=== PATIENT | male | born 1940 | race Caucasian/White ===

== ENCOUNTER 2020-10-19 08:58 | Emergency (ER) | payer MEDICARE, OTHER ==
[~2020-10-19] VITALS: Ht 172.7 cm; Wt 88.5 kg
[~2020-10-19 08:58] MED LIST: NEURONTIN100 MG PO; VITAMIN C100 MG PO; VITAMIN D400 UNI1 PO
[2020-10-19] MEDS ORDERED: NORVASC5 MG PO (09:20)
[2020-10-19] MEDS ORDERED: ATORVASTATIN CA20 MG PO (09:21)
[2020-10-19] MEDS ORDERED: CIPRO500 MG PO (13:08)
[2020-10-19] MEDS ORDERED: ONDANSETRON ODT8 MG PO (13:08)
[2020-10-19] MEDS ORDERED: FLAGYL500 MG PO (13:08)
== END 2020-10-19 15:22 | disposition home or self-care (01) ==
LOC: ED 08:58
DX: K57.92 Diverticulitis of intestine, part unspecified, without perforation or abscess without bleeding (principal); Z88.0 Allergy status to penicillin; Z88.1 Allergy status to other antibiotic agents; Z79.899 Other long term (current) drug therapy
CPT/HCPCS: 71046; 74177; 80053; 81001; 85025; 96368; 99285-25; J0744; J7030; Q9967

== ENCOUNTER 2021-05-09 11:58 | Day surgery (SDC) | payer MEDICARE, OTHER ==
[~2021-05-09] VITALS: Ht 172.7 cm; Wt 86.0 kg
[~2021-05-09 11:58] MED LIST changes: +ATORVASTATIN CA20 MG PO; +CIPRO500 MG PO; +FLAGYL500 MG PO; +NORVASC5 MG PO; +ONDANSETRON ODT8 MG PO
--- NOTE | 2021-05-09 13:51 | NUR ---
WARM BLANKET ON PER REQUEST UPDATE GIVEN. IV PATENT.
--- NOTE | 2021-05-09 15:17 | NUR ---
05/09/21 1517 Glenna Porter 1513- PT ARRIVES TO PACU AWAKE AND TALKING. PT REPORTS NO PAIN OR NAUSEA. RESP EVEN AND UNLABORED. OXYGEN SAT HIGH 90'S ON 2L VIA NC. 1516- PT PROVIDED A WARM BLANKET PER REQUEST.
--- NOTE | 2021-05-11 15:08 | OR ---
[facility] [address], [place] [address] Signed DATE OF OPERATION: 05/09/2021 SURGEON: Jose Angel Daniel MD PREOPERATIVE DIAGNOSES: 1. History of diverticulitis, October 19, 2020. 2. Normal colonoscopy February 21, 2013. POSTOPERATIVE DIAGNOSES: 1. Sigmoid diverticulosis without evidence of stricture or inflammation. 2. Polyps x3 (larger pedunculated polyp of rectum, smaller pedunculated polyp, right transverse colon). PROCEDURE: Total colonoscopy to cecum with cold snare polypectomy x1, cold morcellation polypectomy x1 and hot snare polypectomy x1. ANESTHESIA: Intravenous sedation, fentanyl 100 mcg and Versed 6 mg total. INDICATION: This 80-year-old white man is a patient of Dr. Garcia. He suffered a bout of diverticulitis on October 19, 2020, treated with antibiotics and dietary modification with resolution of his symptoms. It has been since 2012 that he last underwent a colonoscopy. He had diverticulosis at that time. He had a previous colonoscopy in the past, which showed a polyp as performed by Dr. Vitor Bryant a number of years ago. The patient does have family history of colon cancer in his father, although he is symptom-free at this time. He is recommended to have colonoscopy on the basis of his family history as well as his recent diverticulitis problem. The risks of bleeding, infection, and perforation were reviewed with him, he understands and wished to proceed. FINDINGS: The prep was excellent. Complete colonoscopy was undertaken to the cecum without question. He had diverticular change of the sigmoid and left colon as expected. Additionally he had 3 polyps, a sessile polyp in the right colon, excised with cold morcellation technique. Another in the transverse colon excised with cold snare polypectomy technique and a larger pedunculated polyp of the rectum at about 10 cm, this was excised with hot snare polypectomy technique. There were no other findings of concern. Electronically Signed By: JOSE ANGEL DANIEL MD 05/11/21 1508 PATIENT NAME: JOSE ANGEL OLSEN OPERATIVE REPORT DATE OF : 44 REPORT #: [id number] PHYSICIAN: JOSE ANGEL DANIEL MD PCP: JERMAIN GARCIA MD REPORT IS CONFIDENTIAL AND NOT TO BE RELEASED WITHOUT AUTHORIZATION [facility] [address] [place] [id number] Signed DESCRIPTION OF PROCEDURE: The patient was brought to the endoscopy suite and placed in lateral decubitus position given intravenous sedation to the point of slurred speech and nystagmus. Digital rectal examination was normal. An Olympus video colonoscope was passed in the rectum and manipulated throughout the colon ultimately intubating the cecum itself. The ileocecal valve and appendiceal orifice were normal. Scope was withdrawn from that point and in the proximal ascending colon there was a small sessile polyp, this was excised with cold morcellation technique. The scope was further withdrawn and in the right transverse colon, a small pedunculated polyp was noted, this was excised with cold snare technique. Further withdrawal showed diverticula once again in the left colon and in the sigmoid. At the region of the rectum at 10 cm, there was a much larger pedunculated adenomatous polyp. This was excised with hot snare polypectomy technique without problem and passed for pathology. There were no other findings of concern. The patient was taken to the recovery room in good condition. CONCLUDING DIAGNOSES: 1. Polyps x3. 2. Diverticular change of sigmoid. PLAN: Recommend repeat colonoscopy in three years, sooner if clinically indicated. He will return to the ongoing care of Dr. Garcia. Jose Angel Daniel MD /MODL /[id number] cc: Jermain Garcia MD Copies: JERMAIN GARCIA MD Electronically Signed By: JOSE ANGEL DANIEL MD 05/11/21 1508 PATIENT NAME: JOSE ANGEL OLSEN OPERATIVE REPORT DATE OF : 44 REPORT #: [id number] PHYSICIAN: JOSE ANGEL DANIEL MD PCP: JERMAIN GARCIA MD REPORT IS CONFIDENTIAL AND NOT TO BE RELEASED WITHOUT AUTHORIZATION [facility] [address] [place] [id number] Signed ~ Electronically Signed By: JOSE ANGEL DANIEL MD 05/11/21 1508 PATIENT NAME: FRANJOSE ANGEL LLAMAS OPERATIVE REPORT DATE OF : 44 REPORT #: [id number] PHYSICIAN: JOSE ANGEL DANIEL MD PCP: JERMAIN GARCIA MD REPORT IS CONFIDENTIAL AND NOT TO BE RELEASED WITHOUT AUTHORIZATION
== END 2021-05-09 15:52 | disposition home or self-care (01) ==
LOC: OPS 11:58 → DS 11:58 → OPS 13:00
PROVIDERS: ATTEND Surgery
PROC: 0DBE8ZX Excision of Large Intestine, Via Natural or Artificial Opening Endoscopic, Diagnostic (ICD-10-PCS; 2021-05-09)
PROC: 0DBL8ZX Excision of Transverse Colon, Via Natural or Artificial Opening Endoscopic, Diagnostic (ICD-10-PCS; 2021-05-09)
PROC: 0DBP8ZX Excision of Rectum, Via Natural or Artificial Opening Endoscopic, Diagnostic (ICD-10-PCS; 2021-05-09)
PROC: 0DBK8ZX Excision of Ascending Colon, Via Natural or Artificial Opening Endoscopic, Diagnostic (ICD-10-PCS; principal; 2021-05-09 13:00)
DX: Z12.11 Encounter for screening for malignant neoplasm of colon (principal); K57.30 Diverticulosis of large intestine without perforation or abscess without bleeding; D12.2 Benign neoplasm of ascending colon; K51.40 Inflammatory polyps of colon without complications; I10 Essential (primary) hypertension; Z86.010 Personal history of colon polyps; Z80.0 Family history of malignant neoplasm of digestive organs; Z88.0 Allergy status to penicillin; Z79.899 Other long term (current) drug therapy
CPT/HCPCS: 99153; G0500; J0690; J2250; J3010; J7121

== ENCOUNTER 2021-10-31 10:29 | Emergency (ER) | payer OTHER, MEDICARE ==
[~2021-10-31] VITALS: Ht 172.7 cm; Wt 91.4 kg
== END 2021-10-31 12:42 | disposition home or self-care (01) ==
LOC: ED 10:29
DX: S61.211A Laceration without foreign body of left index finger without damage to nail, initial encounter (principal); W29.3XXA Contact with powered garden and outdoor hand tools and machinery, initial encounter; Z88.0 Allergy status to penicillin; Z88.8 Allergy status to other drugs, medicaments and biological substances
CPT/HCPCS: 12001; 90471; 90715; 99282-25

== ENCOUNTER 2022-03-04 18:50 | Emergency (ER) | payer MEDICARE, OTHER ==
[~2022-03-04] VITALS: Ht 172.7 cm; Wt 86.4 kg
[2022-03-04] MEDS ORDERED: NITROGLYCERIN0.4 MG SL (20:35)
[2022-03-04] MEDS ORDERED: ATORVASTATIN CA40 MG PO (20:36)
[2022-03-04] MEDS ORDERED: LOSARTAN POTASS25 MG PO (20:36)
[2022-03-04] MEDS ORDERED: CLOPIDOGREL75 MG PO (20:36)
[2022-03-04] MEDS ORDERED: AMLODIPINE BESYL5 MG PO (20:36)
[2022-03-04] MEDS ORDERED: METOPROLOL SUCC25 MG PO (20:36)
== END 2022-03-04 22:09 | disposition home or self-care (01) ==
LOC: ED 18:50
DX: U07.1 COVID-19 (principal); Z88.0 Allergy status to penicillin; Z88.8 Allergy status to other drugs, medicaments and biological substances; Z79.899 Other long term (current) drug therapy
CPT/HCPCS: 87502; 96374; 99283-25; C9803; U0003

== ENCOUNTER 2024-04-27 14:30 | Emergency (ER) | payer MEDICARE, OTHER ==
[~2024-04-27] VITALS: Ht 172.7 cm; Wt 82.0 kg
[~2024-04-27 14:30] MED LIST changes: +AMLODIPINE BESYL5 MG PO; +ATORVASTATIN CA40 MG PO; +CLOPIDOGREL75 MG PO; +LOSARTAN POTASS25 MG PO; +METOPROLOL SUCC25 MG PO; +NITROGLYCERIN0.4 MG SL
[2024-04-27] MEDS ORDERED: GABAPENTIN600 MG PO (14:40)
[2024-04-27] MEDS ORDERED: HYDROCODONE/ACETA 5/325 TAB PO ONE (15:30)
[2024-04-27] MEDS ORDERED: HYDROCODON-ACE1 EA10 PO (16:44)
[2024-04-27 16:56] VITALS: BP 112/96
== END 2024-04-27 16:57 | disposition home or self-care (01) ==
LOC: ED 14:30
DX: M54.50 Low back pain, unspecified (principal); Z88.0 Allergy status to penicillin; Z88.1 Allergy status to other antibiotic agents; Z79.899 Other long term (current) drug therapy
CPT/HCPCS: 72100; 99283